=== PATIENT | female | born 1965 | race American Indian/Alaskan Native ===

== ENCOUNTER 2019-04-11 14:21 | Emergency (ER) | payer OTHER ==
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
[2019-04-11 15:58] LABS: Bilirubin,Urine NEG (Negative); Blood,Urine MOD (Negative); Color,Urine Yellow (Yellow); Mucus,Urine 3+ /HPF; Protein,Urine <15 mg/dL mg/dL (Negative); Urobilinogen,Urine < 2.0 mg/dL (<2.0)
[2019-04-11 16:12] LABS: BUN/Creatinine Ratio 23; Blood Urea Nitrogen 16 mg/dL (7-17); Calcium 9.3 mg/dL (8.4-10.2); Hemolysis Index 4
--- NOTE | 2019-04-11 16:18 | XRay Report ---
CHEST 2 VIEWS INDICATION: left sided pain. COMPARISON: None. FINDINGS: Support devices: None. Heart: Within normal limits. Pulmonary vasculature: Normal. Lungs/pleura: Left lower lobe opacification with silhouetting of the diaphragm and opacification of t he left costophrenic angle. There is a suggestion of air bronchograms far posterior on the lateral vi ew. Widening of the left pleural space. The left upper lobe is clear. The right lung is normally expa nded and clear. No pneumothorax. Additional findings: Scoliosis.. IMPRESSION: 1. Suspect left lower lobe pneumonia with a small pleural effusion. Signer Name: Mike Burgess MD Signed: 04/11/2019 4:13 PM Workstation Name: [id number]
[2019-04-11 16:31] LABS: Hematocrit 36.8 % (30.3-42.9); Hemoglobin 12.4 gm/dl (10.1-14.3); Mean Corpuscular HGB Conc 34 % (30-34); Mean Corpuscular Volume 87 fl (79-97); Platelet Count 304 K/mm3 (140-440); Red Blood Count 4.21 M/mm3 (3.65-5.03); Red Cell Distribution Width 14.6 % (13.2-15.2)
[2019-04-11] MEDS ORDERED: MORPHINE 2 MG/1 ML INJ IV ONE (20:31)
[2019-04-11] MEDS ORDERED: ONDANSETRON 4 MG/2 ML INJ IV ONE (20:32)
--- NOTE | 2019-04-11 21:42 | Cat Scan Report ---
CT CHEST, ABDOMEN, AND PELVIS WITH IV CONTRAST INDICATION / CLINICAL INFORMATION: left chest pain, luq pain h/o pneumo/hemo in november. TECHNIQUE: Axial CT images were obtained through the chest, abdomen, and pelvis after 100 mL Omnipaque [address] scans at this location are performed using CT dose reduction for ALARA by means of aut omated exposure control. COMPARISON: CT abdomen pelvis 12/22/2012 FINDINGS: HEART: Nonenlarged. There is mild left mediastinal shift. THORACIC AORTA: No significant abnormality. MEDIASTINUM and ROCIO: No significant abnormality. LUNGS: No acute air space or interstitial disease. PLEURA: Small left pleural effusion with adjacent subsegmental atelectasis, and additional scattered bands of subsegmental atelectasis throughout the left lung. No pneumothorax. ADDITIONAL CHEST FINDINGS: None. LIVER: No significant abnormality. GALLBLADDER: No significant abnormality. BILE DUCTS: No significant abnormality. PANCREAS: No significant abnormality. SPLEEN: No significant abnormality. ADRENALS: No significant abnormality. RIGHT KIDNEY and URETER: No significant abnormality. LEFT KIDNEY and URETER: No significant abnormality. STOMACH and SMALL BOWEL: No significant abnormality. COLON: Scattered colonic diverticula without CT evidence of acute diverticulitis. APPENDIX: No significant abnormality. PERITONEUM: No free fluid. No free air. No fluid collection. LYMPH NODES: No significant adenopathy. AORTA and ARTERIES: No significant abnormality. IVC and VEINS: No significant abnormality. URINARY BLADDER: No significant abnormality. REPRODUCTIVE ORGANS: The uterus is absent. No adnexal mass. ADDITIONAL FINDINGS: Postsurgical change across the lower anterior abdominal wall. SKELETAL SYSTEM: Healing left midclavicular fracture. Multiple healing left rib fractures. IMPRESSION: 1. Old healing left clavicular and left rib fractures. Small left pleural effusion with scattered ban ds of subsegmental atelectasis throughout the left lung. No pneumothorax. 2. No acute process identified within the abdomen or pelvis. Signer Name: Lolis Mcdonald MD Signed: 04/11/2019 9:37 PM Workstation Name: [id number]
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
[2019-04-11 22:10] VITALS: BP 135/58
== END 2019-04-11 22:21 | disposition home or self-care (01) ==
LOC: ED 14:21
DX: N39.0 Urinary tract infection, site not specified (principal); I10 Essential (primary) hypertension
CPT/HCPCS: 36415; 71046; 71260; 74177; 80048; 81001; 83690; 84484; 85027; 87086; 93005; 93010; 96374; 96375; 99284; J2270; J2405; Q9967